=== PATIENT | female | born 2005 | race Native Hawaiian/Other Pacific Islander ===

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

== ENCOUNTER 2023-01-30 10:32 | Outpatient (CLI) | payer OTHER | END 2023-01-30 19:14 | disposition home or self-care (01) | LOC: US 10:32 | PROVIDERS: ATTEND Nurse Practitioner Family | DX: R10.11 Right upper quadrant pain (principal) ==

== ENCOUNTER 2023-06-18 16:23 | Outpatient (CLI) | payer OTHER | END 2023-06-18 22:10 | disposition home or self-care (01) | LOC: LABW 16:23 | PROVIDERS: ATTEND Nurse Practitioner Family | DX: N93.9 Abnormal uterine and vaginal bleeding, unspecified (principal) | CPT/HCPCS: 36415; 84702 ==